=== PATIENT | female | born 1995 | race Caucasian/White ===

== ENCOUNTER 2017-01-07 12:19 | Emergency (ER) | payer OTHER ==
[~2017-01-07] VITALS: Ht 167.6 cm; Wt 58.0 kg
[2017-01-07 12:29] VITALS: TEMP 37; Ht 167.6 cm; Wt 58.0 kg
[2017-01-07] MEDS ORDERED: [UNRECOGNIZED DRUG - CODE] PO (13:10)
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
[2017-01-07 13:41] VITALS: BP 116/78; PULSE 80; O2SAT 100
== END 2017-01-07 13:43 | disposition home or self-care (01) ==
LOC: C.EDB 12:21 → C.EDD 13:43
DX: S09.90XA Unspecified injury of head, initial encounter (principal); X58.XXXA Exposure to other specified factors, initial encounter; Z87.820 Personal history of traumatic brain injury